=== PATIENT | male | born 1960 | race Caucasian/White ===

== ENCOUNTER 2019-04-21 08:00 | Day surgery (SDC) | payer OTHER ==
[~2019-04-21] VITALS: Ht 185.4 cm; Wt 114.3 kg
[~2019-04-21 08:00] MED LIST: ALL10TAB29 PO; ASMA110A IN; ATOR40TA75 PO; CARV12.5 PO; CHLO125TA PO; GEMF600T5 PO; HM P99TA PO; LISI-538 PO; LORA-674 PO; MAGN100T PO; METF-723 PO; MONT10TA2 PO; MULTCAP PO; NS 1,000 ML IV ONE; OMEP-218 PO; PROAAER10 INH; RA T500C2 PO; SYMB16INH INH; VITA-144 PO; VITA-157 PO; VITA500T PO
[2019-04-21] MEDS ORDERED: propofoL 200 MG/20 ML VIAL As Ordered ONE ×2 (09:16→09:47)
--- NOTE | 2019-04-21 09:40 | ROOR ---
Patient Name: Luisito Jones Procedure Date: 04/21/2019 9:11 AM Date of : 1960 Age: 59 Room: [facility] Gender: Male Note Status: Finalized Procedure: Total Colonoscopy to Cecum + Cold Snare Polypectomy Indications: Screening in patient at increased risk: Colorectal cancer in sister before age 60 Providers: Chuy Bsutos MD Referring MD: [facility], Admin. Requesting Provider: Medicines: Monitored Anesthesia Care Complications: No immediate complications. Procedure: Pre-Anesthesia Assessment: - The heart rate, respiratory rate, oxygen saturations, blood pressure, adequacy of pulmonary ventilation, and response to care were monitored throughout the procedure. The Colonoscope was introduced through the anus and advanced to the cecum, identified by appendiceal orifice and ileocecal valve. The colonoscopy was performed without difficulty. The patient tolerated the procedure well. The quality of the bowel preparation was good. Findings: The perianal and digital rectal examinations were normal. Non-bleeding internal hemorrhoids were found during retroflexion. The hemorrhoids were small and Grade I (internal hemorrhoids that do not prolapse). A small polyp was found at 20 cm proximal to the anus. The polyp was sessile. The polyp was removed with a cold snare. Resection and retrieval were complete. The exam was otherwise without abnormality on direct and retroflexion views. Impression: - Non-bleeding internal hemorrhoids. - One small polyp at 20 cm proximal to the anus, removed with a cold snare. Resected and retrieved. - The examination was otherwise normal on direct and retroflexion views. - The exam was otherwise normal to the cecum. Recommendation: - Patient has a contact number available for emergencies. The signs and symptoms of potential delayed complications were discussed with the patient. Return to normal activities tomorrow. Written discharge instructions were provided to the patient. - High fiber diet. - Discharge patient to home. - Await pathology results. - Telephone GI clinic for pathology results in 1 week. - Repeat colonoscopy in 5 years for surveillance based on pathology results. - Return to referring physician. - The findings and recommendations were discussed with the patient's family. Chuy Bustos MD Chuy Bustos MD 04/21/2019 9:39:54 AM Electronically signed by Chuy Bustos MD Number of Addenda: 0 Note Initiated On: 04/21/2019 9:11 AM Estimated Blood Loss: Estimated blood loss: none.
[2019-04-21 10:08] VITALS: BP 105/55
== END 2019-04-21 10:10 | disposition home or self-care (01) ==
LOC: M OPP 08:00
PROVIDERS: ATTEND Internal Medicine Gastroenterology
DX: Z12.11 Encounter for screening for malignant neoplasm of colon (principal); Z80.0 Family history of malignant neoplasm of digestive organs; K64.0 First degree hemorrhoids; D12.6 Benign neoplasm of colon, unspecified; Z79.84 Long term (current) use of oral hypoglycemic drugs; Z79.899 Other long term (current) drug therapy; Z91.018 Allergy to other foods

== ENCOUNTER 2023-04-24 10:36 | Inpatient (IN) | payer OTHER ==
[~2023-04-24] VITALS: Ht 185.4 cm; Wt 108.2 kg
[~2023-04-24 10:36] MED LIST changes: -ALL10TAB29 PO; -ASMA110A IN; +CETI-24 PO; -HM P99TA PO; -LISI-538 PO; +LISI20TA33 PO; +LORA-1041 PO; -LORA-674 PO; +MOME110A IN; -MONT10TA2 PO; +MONT10TA97 PO; -NS 1,000 ML IV ONE; +OMEP-173 PO; -OMEP-218 PO; +POTA99TA14 PO; -VITA-157 PO; +VITA-243 PO; -VITA500T PO; +VITAE40CA PO
[2023-04-24] MEDS ORDERED: ONDANSETRON 4MG 2ML VIAL IV ONE (13:00)
[2023-04-24] MEDS ORDERED: NS 1,000 ML IV ONE ×2 (13:00→15:35)
[2023-04-24 13:28] LABS: BASO % 0.3 % (0.0-1.0); EOS # 0.1 10^3/uL (0.0-0.5); EOS % 0.8 % (0.0-3.0); HEMATOCRIT 54.3 % (42.0-52.0); HEMOGLOBIN 18.5 g/dl (13.5-17.5); LYMPH # 1.2 10^3/uL (1.5-5.0); LYMPH % 10.3 % (24.0-44.0); MEAN CORPUSCULAR HGB CONC 34.1 g/dl (32.0-36.5); MEAN CORPUSCULAR VOLUME 91.1 fl (80.0-96.0); MONO # 1.3 10^3/uL (0.0-0.8); NEUTROPHILS # 9.2 10^3/uL (1.5-8.5); PLATELET COUNT, AUTOMATED 272 10^3/uL (150-450); RED BLOOD COUNT 5.96 10^6/uL (4.30-6.10)
[2023-04-24 14:01] LABS: ALBUMIN 4.5 G/DL (3.2-5.2); BILIRUBIN,DIRECT 0.4 MG/DL (<0.4); BILIRUBIN,TOTAL 1.2 MG/DL (0.3-1.2); CALCIUM LEVEL 13.7 MG/DL (8.3-10.6); CK-MB VALUE MASS 6.8 NG/ML (<3.6); CREATININE FOR GFR 1.78 MG/DL (0.70-1.30); GLOMERULAR FILTRATION RATE 41.3 (>49); POTASSIUM SERUM 3.8 MMOL/L (3.5-5.1); TOTAL PROTEIN 7.7 G/DL (5.7-8.2)
[2023-04-24 14:13] LABS: MB/CK RELATIVE INDEX 0.2 (< OR =4)
[2023-04-24 15:40] LABS: MB/CK RELATIVE INDEX 0.2 (< OR =4)
[2023-04-24] MEDS ORDERED: ISOVUE-370 76% 100ML VIAL As Ordered ONE (15:40)
[2023-04-24] MEDS ORDERED: PANTOPRAZOLE 40MG VIAL IV ONE (16:10)
[2023-04-24 16:55] VITALS: TEMP 99.1
[2023-04-24] MEDS ORDERED: CARVedilol 12.5 MG TAB PO ONE (17:15)
[2023-04-24 17:38] VITALS: BP 176/99
[2023-04-24] MEDS ORDERED: NS 1,000 ML IV SCH (17:45)
[2023-04-24] MEDS ORDERED: PANTOPRAZOLE 40MG VIAL IV SCH (17:45)
[2023-04-24] MEDS ORDERED: MED REC IN PROGRESS XX SCH (17:50)
[2023-04-24] MEDS ORDERED: SUCRALFATE SUSP 1GM/10ML UD PO SCH (18:00)
[2023-04-24] MEDS ORDERED: ALBUTEROL SULFATE 2.5MG/0.5ML INH NEB SOLN NEB PRN (18:50)
[2023-04-24] MEDS ORDERED: ONDANSETRON 4MG 2ML VIAL IV PRN (18:50)
[2023-04-24 18:57] VITALS: BP 140/81; O2SAT 94
[2023-04-24] MEDS ORDERED: SYMBICORT 160/4.5MCG INHALER 6GM INH SCH (20:00)
[2023-04-24] MEDS ORDERED: CARVedilol 12.5 MG TAB PO SCH (21:00)
[2023-04-25] MEDS ORDERED: ENOXAPARIN 40MG/0.4ML SYRINGE (J1650 PER 10MG) SC SCH (09:00)
== END 2023-04-24 20:10 | disposition left against medical advice (07) | DRG 384 ==
LOC: M ED 10:36 → M ED INP 17:42
PROVIDERS: ADMIT Internal Medicine Nephrology; ATTEND Internal Medicine Nephrology
DX: K27.3 Acute peptic ulcer, site unspecified, without hemorrhage or perforation (principal); N17.9 Acute kidney failure, unspecified; M62.82 Rhabdomyolysis; K29.80 Duodenitis without bleeding; K57.90 Diverticulosis of intestine, part unspecified, without perforation or abscess without bleeding; N18.30 Chronic kidney disease, stage 3 unspecified; E86.0 Dehydration; E11.9 Type 2 diabetes mellitus without complications; K40.20 Bilateral inguinal hernia, without obstruction or gangrene, not specified as recurrent; K42.9 Umbilical hernia without obstruction or gangrene; E83.52 Hypercalcemia; Z79.899 Other long term (current) drug therapy; Z91.018 Allergy to other foods; K21.9 Gastro-esophageal reflux disease without esophagitis; E78.5 Hyperlipidemia, unspecified; J45.909 Unspecified asthma, uncomplicated; Z87.891 Personal history of nicotine dependence

== ENCOUNTER 2023-11-20 09:03 | Day surgery (SDC) | payer OTHER ==
[~2023-11-20] VITALS: Ht 185.4 cm; Wt 103.1 kg
[~2023-11-20 09:03] MED LIST changes: +LIDOCAINE 2% 100MG/5ML SDV (FOR ANES.) As Ordered ONE; +LOPI600T PO; +MIDAZOLAM INJ 2MG/2ML VIAL As Ordered ONE; +MULTTAB61 PO; +ONDANSETRON 4MG 2ML VIAL As Ordered ONE; +PROA1AER2 IN; +ROCURONIUM BROMIDE 50MG/5ML VIAL As Ordered ONE; +SITA50TAB PO; +VITA100093 PO; +VITA400T26 PO; +fentaNYL 100 MCG/2 ML INJECTION As Ordered ONE; +propofoL 200 MG/20 ML VIAL As Ordered ONE
[2023-11-20] MEDS ORDERED: LR 1,000 ML IV SCH ×2 (09:05→13:35)
[2023-11-20] MEDS: ceFAZolin SOD 2 GM in IV 1 EA IV ONE (11:52)
[2023-11-20] MEDS: HEPARIN SOD (PORCINE) 5000UNITS/ML 1ML VIAL/SYRINGE SQ ONE (11:55)
[2023-11-20] MEDS ORDERED: ACETAMINOPHEN 1000MG 100ML IV BAG As Ordered ONE (12:15)
[2023-11-20] MEDS ORDERED: KETOROLAC 60MG 2ML VIAL As Ordered ONE (12:15)
[2023-11-20] MEDS ORDERED: SUGAMMADEX SODIUM 500 MG/5 ML VIAL (BRIDION) As Ordered ONE (12:20)
[2023-11-20] MEDS ORDERED: ePHEDrine SULFATE 25 MG/5 ML(5MG/ML) SYRINGE As Ordered ONE (13:19)
[2023-11-20] MEDS ORDERED: fentaNYL 100 MCG/2 ML INJECTION IV PRN (13:35)
[2023-11-20] MEDS ORDERED: HYDROMORPHONE HCL 0.5 MG/ 0.5 ML SYRINGE IV PRN (13:35)
[2023-11-20] MEDS ORDERED: oxyCODONE 5MG TAB PO PRN (13:35)
[2023-11-20] MEDS ORDERED: ONDANSETRON 4MG 2ML VIAL IV PRN (13:35)
[2023-11-20 15:15] VITALS: BP 134/87; TEMP 96.7; O2SAT 96
== END 2023-11-20 15:22 | disposition home or self-care (01) ==
LOC: M SDC 09:03
PROVIDERS: ATTEND Surgery
DX: K42.9 Umbilical hernia without obstruction or gangrene (principal); E11.9 Type 2 diabetes mellitus without complications; I10 Essential (primary) hypertension; J45.909 Unspecified asthma, uncomplicated; R00.1 Bradycardia, unspecified; E78.00 Pure hypercholesterolemia, unspecified; G47.30 Sleep apnea, unspecified; K21.9 Gastro-esophageal reflux disease without esophagitis; Z79.899 Other long term (current) drug therapy; Z79.84 Long term (current) use of oral hypoglycemic drugs; Z79.51 Long term (current) use of inhaled steroids; Z79.82 Long term (current) use of aspirin; Z91.018 Allergy to other foods
CPT/HCPCS: 49591; C1781; J0131; J0665; J0690; J1100; J1885; J2250; J2405; J3010

== ENCOUNTER 2024-08-04 10:26 | Day surgery (SDC) | payer OTHER ==
[~2024-08-04] VITALS: Ht 185.4 cm; Wt 101.5 kg
[~2024-08-04 10:26] MED LIST changes: +ASPI81TA26 PO; -LIDOCAINE 2% 100MG/5ML SDV (FOR ANES.) As Ordered ONE; +LISI5TAB11 PO; -MIDAZOLAM INJ 2MG/2ML VIAL As Ordered ONE; -ONDANSETRON 4MG 2ML VIAL As Ordered ONE; -ROCURONIUM BROMIDE 50MG/5ML VIAL As Ordered ONE; -fentaNYL 100 MCG/2 ML INJECTION As Ordered ONE; -propofoL 200 MG/20 ML VIAL As Ordered ONE
[2024-08-04 12:07] VITALS: TEMP 98.1
[2024-08-04] MEDS ORDERED: propofoL 200 MG/20 ML VIAL As Ordered ONE (12:12)
[2024-08-04 12:32] VITALS: BP 143/82; O2SAT 96
== END 2024-08-04 12:38 | disposition home or self-care (01) ==
LOC: M OPP 10:26
PROVIDERS: ATTEND Internal Medicine Gastroenterology
DX: Z12.11 Encounter for screening for malignant neoplasm of colon (principal); D12.0 Benign neoplasm of cecum; D12.2 Benign neoplasm of ascending colon; K64.0 First degree hemorrhoids; Z80.0 Family history of malignant neoplasm of digestive organs; G47.30 Sleep apnea, unspecified; Z91.018 Allergy to other foods; Z79.82 Long term (current) use of aspirin; Z79.84 Long term (current) use of oral hypoglycemic drugs; Z79.51 Long term (current) use of inhaled steroids; Z79.899 Other long term (current) drug therapy; J45.909 Unspecified asthma, uncomplicated; Z87.891 Personal history of nicotine dependence